=== PATIENT | female | born 1990 | race Caucasian/White ===

== ENCOUNTER 2016-07-08 13:03 | Emergency (ER) | payer MEDICAID, OTHER ==
[~2016-07-08] VITALS: Ht 162.6 cm; Wt 98.0 kg
[~2016-07-08 13:03] MED LIST: FE T325T PO; PERC5TAB12 PO; PRENTAB62 PO
[2016-07-08 13:04] VITALS: BP 135/75; PULSE 104; RESP 12; TEMP 98.2; O2SAT 98
== END 2016-07-08 14:55 | disposition left against medical advice (07) ==
LOC: NED 13:03
DX: O26.90 Pregnancy related conditions, unspecified, unspecified trimester (principal)
CPT/HCPCS: 99281